=== PATIENT | male | born 1955 | race Caucasian/White ===

== ENCOUNTER 2024-02-05 15:11 | Inpatient (IN) | payer MEDICARE ==
[~2024-02-05] VITALS: Ht 182.9 cm; Wt 93.0 kg
[2024-02-05] VITALS (16 sets, daily range): BP systolic 92–151; BP diastolic 39–93
--- NOTE | 2024-02-05 15:28 | NUR ---
PT AMBULATED TO ROOM 6 IN STABLE CONDITION.
[2024-02-05] MEDS ORDERED: SODIUM CHLORIDE 0.9% 1,000 ML IV ONE (15:40)
[2024-02-05] MEDS ORDERED: ONDANSETRON HCl 4 MG/2 ML SDV IV ONE (15:40)
[2024-02-05 15:54] LABS: BASO% 0.1 % (0-3); EOS% 0.1 % (0-8); HEMATOCRIT 49.4 % (39.0-50.0); HEMOGLOBIN 16.1 g/dl (14.0-18.0); IMMATURE GRANULOCYTES 0.4 % (0.0-5.0); LYMPH% 8.5 % (15-41); MEAN CELL VOLUME 88.2 fL CALC (80.0-100.0); MEAN CORPUSCULAR HGB 28.8 pG CALC (26.0-32.0); MEAN CORPUSCULAR HGB CONC 32.6 g/dL CAL (32.0-36.0); MONO% 6.1 % (2-13); NEUT# 8.91 thou/uL (1.82-7.42); NEUT% 84.8 % (42-76); RED BLOOD COUNT 5.6 mill/uL (4.70-6.10); RED CELL DISTRI WIDTH 13.1 % (11.5-15.5)
[2024-02-05 16:09] LABS: ALBUMIN 4.7 g/dL (3.2-5.0); BILIRUBIN, TOTAL 1.5 mg/dL (0.2-1.3); CREATININE 0.7 mg/dL (0.7-1.3); POTASSIUM 4.6 mmol/l (3.5-5.1); TOTAL PROTEIN 7.6 g/dL (6.3-8.2)
--- NOTE | 2024-02-05 16:27 | NUR ---
Pt in oom alert, oriented Xs 4. Updated on plan of care and indicates understanding
--- NOTE | 2024-02-05 17:18 | NUR ---
Pt unable to produce urine samp;e at this time
[2024-02-05] MEDS ORDERED: COREG6.25 MG PO (17:20)
[2024-02-05] MEDS ORDERED: ENTRESTO 97-1031 TAB PO (17:21)
[2024-02-05] MEDS ORDERED: METFORMIN HCL1000 M1 PO (17:21)
[2024-02-05] MEDS ORDERED: SIMVASTATIN5 MG PO (17:21)
[2024-02-05] MEDS ORDERED: JARDIANCE25 MG PO (17:22)
[2024-02-05] MEDS ORDERED: EPLERENONE25 MG PO (17:22)
[2024-02-05] MEDS ORDERED: HYDROmorphone HCL 2 MG/AMP IV PRN (18:05)
[2024-02-05] MEDS ORDERED: SODIUM CHLORIDE 0.9% 1,000 ML IV PRN (18:05)
--- NOTE | 2024-02-05 18:07 | NUR ---
PT TOLERATED NGT WELL-RT NARE-VERIFIED PLACEMENT VIA AIR BOLUS. APPROX 200CC GREEN BILE NOTED-LIWS.
--- NOTE | 2024-02-05 19:35 | NUR ---
REPORT CALLED TO Corrine DOWNING RN.
--- NOTE | 2024-02-05 20:00 | NUR ---
Admission Note Report Given to: PANCHO ARAUZ Transported by: X Wheelchair Stretcher Transported with: Nurse X Transporter X Patent IV O2 X Rn Nursery Location: ICU X MS2
[2024-02-05 20:34] LABS: URINE BILIRUBIN - DIPSTICK Negative (NEGATIVE); URINE BLOOD DIPSTICK Negative (NEGATIVE); URINE COLOR Yellow; URINE GLUCOSE - DIPSTICK 500 mg/dL (NEGATIVE); URINE KETONE >=160 mg/dL (NEGATIVE); URINE LEUK ESTERASE Negative (NEGATIVE); URINE NITRITE - DIPSTICK Negative (Negative); URINE PROTEIN - DIPSTICK Negative (NEG-TRACE); URINE SPECIFIC GRAVITY 1.015; URINE UROBILINOGEN - DIPSTICK 0.2 E.U./dL (0.2)
--- NOTE | 2024-02-05 23:50 | NUR ---
RECEIVED REPORT FROM NURSE RODRIGUEZ, PATIENT TRANSPORTE VIA WHEELCHAIR [facility]IG[facility]AT [facility] UNIT AT 2000, PATIENT AMBULATORY, ALERT ORIENTED. C/O PAIN STABBING ABDOMEN SPECIALLY WHEN MOVING MEDIACTED WITH DIALUDID, STARTED FLUIDS NS 150CC/HR INFUSING WELL, ON TELEMETRY #7, NGT ON RT NARE SUCTION LOW INTERMITTECT SUCTION, DRAINING GREEN COLORED FLUID, PATIENT NOT IN DISTRESS, ADMISSION ASSEESMENT COMPLETED, PATIENT MAINTAINED ON NPO, ORIENTED TO ROOM AND CALL LIGHT SYSTEM.
[2024-02-06] VITALS (14 sets, daily range): BP systolic 95–139; BP diastolic 41–79
--- NOTE | 2024-02-06 00:56 | NUR ---
PATIENT REMAINS NPO, NOT IN DSITRESS, CALL LIGHT WITHIN REACHED,
--- NOTE | 2024-02-06 03:38 | NUR ---
PATIENT C/O PAIN ON ABDOMEN PS 6/10, PRN DILAUDID GIVEN.
[2024-02-06] MEDS ORDERED: ONDANSETRON HCl 4 MG/2 ML SDV IV SCH (04:15)
[2024-02-06 05:50] LABS: HEMATOCRIT 44.5 % (39.0-50.0); HEMOGLOBIN 14.5 g/dl (14.0-18.0); MEAN CELL VOLUME 91.2 fL CALC (80.0-100.0); MEAN CORPUSCULAR HGB 29.7 pG CALC (26.0-32.0); MEAN CORPUSCULAR HGB CONC 32.6 g/dL CAL (32.0-36.0); RED BLOOD COUNT 4.88 mill/uL (4.70-6.10); RED CELL DISTRI WIDTH 13.7 % (11.5-15.5)
[2024-02-06 06:02] LABS: CREATININE 0.7 mg/dL (0.7-1.3); POTASSIUM 4.6 mmol/l (3.5-5.1); TOTAL PROTEIN 6.1 g/dL (6.3-8.2)
[2024-02-06 06:08] LABS: ALBUMIN 3.7 g/dL (3.2-5.0); BILIRUBIN, TOTAL 0.8 mg/dL (0.2-1.3)
--- NOTE | 2024-02-06 07:57 | NUR ---
SHIFT CHANGE REPORT, PT AWAKE ALERT AND ORIENTED RESTING IN BED, C/O MILD ABD PAIN, NG TUBE IN PLACE TO RIGHT NARE, IVF INFUSING, TELE MONITOR IN PLACE CALL HENSON IN REACH AND BED LOCKED IN LOWEST POSITION WITH CALL HENSON IN REACH. DR LARA HERE AT THIS TIME DISCUSSING PLANC FOR PROCEDURE THIS AFTERNOON, PT STATES UNDERSTANDING.
[2024-02-06] MEDS ORDERED: DEXTROSE IN LACTATED RINGERS 1,000 ML IV PRN (08:20)
[2024-02-06] MEDS ORDERED: ONDANSETRON HCl 4 MG/2 ML SDV IV PRN (08:20)
--- NOTE | 2024-02-06 08:36 | NUR ---
SHIFT CHANGE REPORT, PT SLEEPING BUT AWAKENED TO VERBAL AND TACTILE STIMULI, NO C/O DISCOMFORT, ASSISTED TO RECLINER AND SET UP FOR MEAL. TELE MONITOR IN PLACE, COX IN PLACE WITH MARCIA CLOUDY URINE, CALL HENSON IN REACH.
[2024-02-06] MEDS ORDERED: DEXTROSE 250 ML IV PRN (09:05)
--- NOTE | 2024-02-06 10:00 | NUR ---
NG TUBE TO RIGHT NARE TO LIS WITH DARK GREEN DRAINAGE, PT EXPRESSED DISCOMFORT AND ANXIOUS TO HAVE IT REMOVED, ADVISED MD WILL DISCUSS DISCONTINUATION, STATED UNDERSTANDING.
[2024-02-06] MEDS ORDERED: ROCURONIUM BROMIDE 10 MG/ML 5ML VIAL IV ONE (11:04)
[2024-02-06] MEDS ORDERED: SUGAMMADEX SODIUM 200 MG/2 ML SDV IV ONE (11:04)
[2024-02-06] MEDS ORDERED: DEXAMETHASONE SODIUM PHOSPHATE PF 10 MG/ML SDV IV ONE (11:04)
[2024-02-06] MEDS ORDERED: PROPOFOL 200 MG/20 ML VIAL IV ONE (11:04)
[2024-02-06] MEDS ORDERED: LIDOCAINE HCL 2% 2ML SDV IV ONE (11:04)
[2024-02-06] MEDS ORDERED: SUCCINYLCHOLINE CHLORIDE 20 MG/ML 10ML VIAL IV ONE (11:04)
[2024-02-06] MEDS ORDERED: ACETAMINOPHEN 1,000 MG/100 ML VIAL IV ONE (11:04)
[2024-02-06] MEDS ORDERED: KETOROLAC TROMETHAMINE 30 MG/ML SDV IV ONE (11:04)
[2024-02-06] MEDS ORDERED: PHENYLEPHRINE HCL 10 MG/ML VIAL IV ONE (11:04)
[2024-02-06] MEDS ORDERED: LACTATED RINGER'S 1,000 ML BAG IV ONE (11:04)
--- NOTE | 2024-02-06 11:33 | NUR ---
LEAVING AT THIS TIME BEING TRANSPORTED TO OR VIA BED BY OR TEAM TO PROCEDURE.
[2024-02-06] MEDS ORDERED: LIDOcaine HCl 1% (Local Anesth.) 20 ML VIAL ONE (11:36)
[2024-02-06] MEDS ORDERED: INSULIN LISPRO 100 UNITS/ML ML SC SCH ×2 (12:00→21:00)
[2024-02-06] MEDS ORDERED: FAMOTIDINE 10MG/ML 2ML SDV IV ONE (12:14)
[2024-02-06] MEDS ORDERED: oxyCODONE 5MG/ ACETAMINOPHEN 325MG TAB PO PRN (13:55)
[2024-02-06] MEDS ORDERED: HYDROmorphone HCL 2 MG/AMP IV PRN (14:00)
[2024-02-06] MEDS ORDERED: SODIUM CHLORIDE 0.9% 1,000 ML IV ONE (14:30)
[2024-02-06] MEDS ORDERED: PATIENT' OWN MED 1 EA DOSE PO PRN ×2 (14:50→14:55)
--- NOTE | 2024-02-06 15:07 | NUR ---
REPORT RECEIVED KALYN DE LA TORRE IN PACU, PT TRANSPORTED BACK TO UNIT IN BED AND SETTLED IN ROOM. ALERT AND ORIENTED X 3, C/O ABD PAIN AT 10/10 AND REQUESTING MEDS, IVF INFUSING, TELE MONITOR REPLACED. ABD DRESSING CDI TO MID ABDOMEN, TIMMY DRAIN PLACE TO LEFT ABD WITH SCANT AMT BLOODY DRAINAGE. FAMILY IN ROOM AT THIS TIME, VITAL SIGNS BEING MEASURED.
--- NOTE | 2024-02-06 16:00 | NUR ---
PT REPORTED GREAT RELIEF FROM ABD PAIN AFTER ANALGESIC GIVEN.
--- NOTE | 2024-02-06 17:00 | NUR ---
INCENTIVE SPIROMETER GIVEN, TEACHING DONE, PT RETURNED DEMONSTRATION AND IS USING IT EFFECTIVELY. ASSISTED PT IN STANDING POSITION WHICH HE TOLERATED WELL.
--- NOTE | 2024-02-06 19:28 | NUR ---
TIMMY DRAIN EMPTIED 15CC SANGUINEOUS DRAINAGE.
--- NOTE | 2024-02-06 20:00 | NUR ---
RECEIVED REPORT FROM NURSE EILEEN EVANS RESTING IN BED S/P UMBILICAL HERNIA REPAIR, ABDOMINAL DRESSING CDI, TIMMY DRAIN X 1, MILD PAIN TOLERABLE, REFUSED PAIN MED AT THIS TIME, PATIENT REMAINS ON CLEAR LIQUID DIET TOLERATED, DENIES N/V, IV INFUSING WELL, TELEMETRY IN PLACED, SCD IN PLACED, INCENTIVE SPIROMETR 2500 INPIRATORY VOLUME, CALL LIGHT IN REACHED.
[2024-02-06] MEDS ORDERED: PANTOPRAZOLE SODIUM Sesquihydr 40 MG/TAB PO SCH (21:00)
[2024-02-06] MEDS ORDERED: CARVEDILOL 6.25 MG/TAB PO SCH (21:00)
[2024-02-06] MEDS ORDERED: SIMVASTATIN 5 MG TAB PO SCH (21:00)
[2024-02-07 00:06] VITALS: BP 102/47
--- NOTE | 2024-02-07 00:13 | NUR ---
C/O PAIN OPERATIVE SITE PRN DILAUDID GIVEN.
[2024-02-07 04:05] VITALS: BP 112/56
--- NOTE | 2024-02-07 04:25 | NUR ---
PATIENT C/O PAIN ON OPERATIVE SITE, PRN PERCOCET GIVEN, TIMMY DRAIN EMTIED, CALL LIGHT IN REACHED.
[2024-02-07 05:43] LABS: BASO% 0.2 % (0-3); EOS% 0.2 % (0-8); HEMATOCRIT 44.1 % (39.0-50.0); HEMOGLOBIN 13.8 g/dl (14.0-18.0); IMMATURE GRANULOCYTES 0.1 % (0.0-5.0); LYMPH% 8.1 % (15-41); MEAN CELL VOLUME 94.4 fL CALC (80.0-100.0); MEAN CORPUSCULAR HGB 29.6 pG CALC (26.0-32.0); MEAN CORPUSCULAR HGB CONC 31.3 g/dL CAL (32.0-36.0); MONO% 15.3 % (2-13); NEUT# 6.21 thou/uL (1.82-7.42); NEUT% 76.1 % (42-76); RED BLOOD COUNT 4.67 mill/uL (4.70-6.10); RED CELL DISTRI WIDTH 13.8 % (11.5-15.5)
[2024-02-07 05:52] LABS: ALBUMIN 3.6 g/dL (3.2-5.0); CREATININE 0.6 mg/dL (0.7-1.3); MAGNESIUM 2.2 mg/dL (1.6-2.3); POTASSIUM 4.5 mmol/l (3.5-5.1)
[2024-02-07 07:16] VITALS: BP 112/64
[2024-02-07] MEDS ORDERED: SODIUM CHLORIDE 0.9% 1,000 ML IV PRN (08:35)
[2024-02-07 15:33] VITALS: BP 116/65
[2024-02-07] MEDS ORDERED: JARDIANCE 25 MG PO SCH (16:00)
[2024-02-07] MEDS ORDERED: metFORMIN HYDROCHLORIDE 500 MG/TAB PO SCH (17:30)
[2024-02-07 18:41] VITALS: BP 119/66
--- NOTE | 2024-02-07 20:00 | NUR ---
PT RECEIVED IN STABLE CONDITION. A/O X4. C/O ABD PAIN. MEDICATED WITH PERCOCET PRN. SEE MAR. NO S/S OF DISTRESS. ROOM AIR. S/P ABD HERNIA REPAIR. DRSG DRY AND INTACT. RLQ TIMMY DRAIN PATENT. AMBULATES WITH WALKER. CALL LIGHT IN REACH.
[2024-02-07] MEDS ORDERED: CARVEDILOL 25 MG/TAB PO SCH (21:00)
[2024-02-07] MEDS ORDERED: SACUBITRIL PO SCH (21:00)
[2024-02-07] MEDS ORDERED: VALSARTAN PO SCH (21:00)
[2024-02-07 23:53] VITALS: BP 107/67
[2024-02-08 04:30] VITALS: BP 147/60
[2024-02-08 05:44] LABS: BASO% 0.3 % (0-3); EOS% 1.9 % (0-8); HEMOGLOBIN 13.6 g/dl (14.0-18.0); IMMATURE GRANULOCYTES 0.3 % (0.0-5.0); LYMPH% 15.8 % (15-41); MEAN CELL VOLUME 91.3 fL CALC (80.0-100.0); MEAN CORPUSCULAR HGB 30.3 pG CALC (26.0-32.0); MEAN CORPUSCULAR HGB CONC 33.2 g/dL CAL (32.0-36.0); MONO% 16.4 % (2-13); NEUT# 3.81 thou/uL (1.82-7.42); NEUT% 65.3 % (42-76); RED BLOOD COUNT 4.49 mill/uL (4.70-6.10); RED CELL DISTRI WIDTH 13.6 % (11.5-15.5)
[2024-02-08 05:59] LABS: ALBUMIN 3.2 g/dL (3.2-5.0); CREATININE 0.6 mg/dL (0.7-1.3); POTASSIUM 3.8 mmol/l (3.5-5.1); TOTAL PROTEIN 5.4 g/dL (6.3-8.2)
[2024-02-08 07:06] VITALS: BP 124/73
--- NOTE | 2024-02-08 07:10 | NUR ---
REPORT RECEIVED FROM SAYRN
--- NOTE | 2024-02-08 08:03 | NUR ---
PT AMBULATING HALLWAYS WITH A STEADY GAIT.
[2024-02-08 08:34] VITALS: BP 124/73
--- NOTE | 2024-02-08 08:35 | NUR ---
PT OOB RESTING IN RECLINER,A&O X4;PT DENIES ANY CURRENT PAIN OR DISCOMFORTS,PAIN SCALE AND REPORTING EDUCATED;PT POD #1 HERNIA REPAIR;ASSESSMENT COMPLETED;RESPIRATIONS EVEN AND UNLABORED ON RA,CLEAR LUNG SOUNDS;I.S AT BEDSIDE AND PT DEMONSTARTED USE, ENCOURAGED USE 10X PER HOUR. ABDOMEN DISTENDED/SOFT ON PALPATION AND ACTIVE IN ALL 4 QUADRANTS; MIDLINE INCISION DRESSING CDI WITH TIMMY DRAIN NOTED TO BULB SUCTION. MINIMAL BLOODY DRAINAGE NOTED;STRONG PEDAL PULSES;#20G TO RAC FLUSHED AND PATENT,SITE APPEARS HEALTHY;TELE MONITOR #[address];ACCUCHECK 146, NO COVERAGE NEEDED;PT DENIES ANY ADDITIONAL NEEDS AT THIS TIME AND IS ENCOURAGED TO CALL FOR ASSISTANCE IF NEEDED;FALL PRECAUTIONS NOTED WITH CALL LIGHT IN REACH;FREQUENT ROUNDS MADE.
--- NOTE | 2024-02-08 08:44 | NUR ---
AT BEDSIDE DISCUSSING POC WITH PT.
[2024-02-08] MEDS ORDERED: PERCOCET 5/325M1 TAB PO (08:56)
--- NOTE | 2024-02-08 10:01 | NUR ---
AT BEDSIDE DISCUSSING POC WITH PT.
--- NOTE | 2024-02-08 10:12 | NUR ---
ALL DISCHARGE INSTRUCTIONS PROVIDED AT THIS TIME. TIMMY DRAIN WAS REMOVED BY AND PT TOLERATED WELL. PT INSTRUCTED TO TAKE MEDICATION PRESCRIBED, F/U WITH , NO HEAVY LIFTING AND PT MAY SHOWER. PT ANS SPOUSE VERBALIZE UNDERSTANDING. PT DENIES ANY ADDITIONAL NEEDS;IV SITE REMOVED WITH CATHETER INTACT AND TELE MONITORING D/C. WC TO BE PROVIDED FOR DC HOME. SPOUSE TO TRANSPORT PT HOME.FREQUENT ROUNDS MADE.
--- NOTE | 2024-02-08 10:15 | NUR ---
Discharge instructions given. Patient verbalizes understanding of same. Discharged in stable condition via Wheelchair to Home with spouse. All belongings sent with pt. PT TRANSPORTED TO [facility] VIA ACCOMPANIED BY STAFF. ALL PERSONAL BELONGINGS LEFT WITH PT AT THIS TIME INCLUDING HOME MEDICATIONS. SPOUSE TO TRANSPORT PT HOME.
--- NOTE | 2024-02-12 09:10 | NUR ---
Discharge follow up call completed 02/12/24. Patient states he is feeling well and having no issues since discharge. Patient has pain medication prescribed but does not like to take it. He has managed to ge by with Tylenol. Patient sees his surgeon on Saturday for staple removal. No needs or concerns verbalized at this time.. Patient expressed gratitude for his care during his hospital admission.
== END 2024-02-08 10:14 | disposition home or self-care (01) | DRG 354 ==
LOC: ED 15:11 → ED-I 17:21 → ED 17:40 → MS2 17:41
PROVIDERS: Family Medicine; Nurse Practitioner Family; ADMIT Internal Medicine; ATTEND Internal Medicine
PROC: 0WUF0JZ Supplement Abdominal Wall with Synthetic Substitute, Open Approach (ICD-10-PCS; principal; 2024-02-06)
DX: K42.0 Umbilical hernia with obstruction, without gangrene (principal); I42.9 Cardiomyopathy, unspecified; I50.22 Chronic systolic (congestive) heart failure; I11.0 Hypertensive heart disease with heart failure; E11.9 Type 2 diabetes mellitus without complications; J44.9 Chronic obstructive pulmonary disease, unspecified; E78.5 Hyperlipidemia, unspecified; Z95.810 Presence of automatic (implantable) cardiac defibrillator; Z79.84 Long term (current) use of oral hypoglycemic drugs
CPT/HCPCS: J0131; J0690; J1100; J1171; J1815; J2405; Q9967